=== PATIENT | male | born 1970 | race Two or more races ===

== ENCOUNTER 2021-09-10 07:44 | Day surgery (SDC) | payer OTHER ==
[~2021-09-10] VITALS: Ht 175.3 cm; Wt 59.0 kg
[2021-09-10] MEDS ORDERED: MIDAZOLAM 5 MG/5 ML VIAL ONE (10:46)
[2021-09-10] MEDS ORDERED: LIDOCAINE 2% 100 MG/5 ML UJET TP ONE (10:51)
[2021-09-10] MEDS ORDERED: fentaNYL citrate 0.05 MG/ML VIAL ONE (10:51)
== END 2021-09-10 12:21 | disposition home or self-care (01) ==
LOC: MMU 07:44 → MDS 07:44
PROVIDERS: ATTEND Internal Medicine Gastroenterology
DX: Z12.11 Encounter for screening for malignant neoplasm of colon (principal); D12.3 Benign neoplasm of transverse colon; F17.210 Nicotine dependence, cigarettes, uncomplicated; Z79.899 Other long term (current) drug therapy; Z20.822 Contact with and (suspected) exposure to COVID-19
CPT/HCPCS: 45385; 87426; J3010; J2250